=== PATIENT | female | born 1980 | race Caucasian/White ===

== ENCOUNTER 2020-04-05 21:27 | Inpatient (IN) ==
[2020-04-05] MEDS ORDERED: ACETAMINOPHEN 325 MG TABLET PO PRN (23:24)
[2020-04-05] MEDS ORDERED: ALBUTEROL 2.5 MG/3 ML NEB RESP TX PRN (23:24)
[2020-04-05] MEDS ORDERED: hydrALAZINE 20 MG/1 ML VIAL IV PRN (23:24)
[2020-04-05] MEDS ORDERED: ONDANSETRON 4 MG/2 ML VIAL IV PRN (23:24)
[2020-04-05] MEDS ORDERED: niCARdipine INJ 25 MG in SODIUM CHLORIDE 0.9% 240 ML IV PRN (23:59)
[2020-04-06] MEDS: SODIUM CHLORIDE 0.9% 1,000 ML IV SCH ×3 (00:17→17:41)
[2020-04-06 00:44] LABS: ABG HCO3 22.6 MMOL/L (20-26); ABG Oxygen Saturation 99.3 % (95-100); ABG PCO2 42.8 MM HG (35-48); ABG PH 7.341 (7.35-7.45); ABG PO2 340.8 MM HG (80-95); ABG TCO2 23.9 MMOL/L (23-27)
[2020-04-06] MEDS ORDERED: niCARdipine INJ 50 MG in SODIUM CHLORIDE 0.9% 480 ML IV PRN (00:57)
[2020-04-06] MEDS: ALBUTEROL 2.5 MG/3 ML NEB RESP TX SCH ×4 (01:50→20:14)
[2020-04-06 04:06] LABS: ABG Base Excess -1.8 MMOL/L (-2.5-2.5); ABG HCO3 22.9 MMOL/L (20-26); ABG Oxygen Saturation 98.9 % (95-100); ABG PCO2 38.5 MM HG (35-48); ABG PH 7.392 (7.35-7.45); ABG PO2 217.3 MM HG (80-95); ABG TCO2 24.1 MMOL/L (23-27)
[2020-04-06 04:24] LABS: Basophils % 0.3 % (0.0-0.8); Eosinophils # 0.1 10*3/uL (0.0-0.87); Eosinophils % 1.7 % (0.00-10.9); Hematocrit 34.9 VOL% (35.7-47.0); Hemoglobin 11.8 GM/DL (12.0-16.0); Immature Granulocytes % 0.3 %; Immature Granulocytes Absolute 0.02 #; Lymphocytes # 1.8 10*3/uL (1.4-4.0); Lymphocytes % 29.1 % (21.3-54.2); Mean Corpuscular HGB Conc 33.8 GM/DL (32-36); Mean Corpuscular Volume 81.9 FL (87-102); Mean Platelet Volume 9.4 FL (9.6-12.0); Monocytes % 5.7 % (1.7-12.7); Neutrophils % 62.9 % (38.7-73.9); Platelet Count 208 T/CUMM (130-400); Red Blood Count 4.26 MC/CUMM (3.8-5.5); Red Cell Distribution Width 12.9 % (9.3-17.3); White Blood Count 6.3 T/CUMM (4-12)
[2020-04-06 04:45] LABS: Calcium 8.3 MG/DL (8.5-10.1); Osmolality,Calculated 279.3 MOS/KG (273-304); Thyroid Stimulating Hormone 1.37 uIU/ml (0.358-3.74)
[2020-04-06] MEDS ORDERED: LORazepam 2 MG/1 ML VIAL IV ONE (08:17)
[2020-04-06] MEDS ORDERED: LORazepam 2 MG/1 ML VIAL ONE (08:21)
[2020-04-06] MEDS: ENOXAPARIN 40 MG/0.4 ML SYRINGE SUBCUT SCH (08:44)
[2020-04-06] MEDS: PANTOPRAZOLE 40 MG TABLET PO SCH (09:25)
[2020-04-07] MEDS: ALBUTEROL 2.5 MG/3 ML NEB RESP TX SCH ×3 (01:30→13:47)
[2020-04-07] MEDS: SODIUM CHLORIDE 0.9% 1,000 ML IV SCH ×2 (01:43→08:50)
[2020-04-07 05:44] LABS: Basophils % 0.5 % (0.0-0.8); Eosinophils # 0.1 10*3/uL (0.0-0.87); Eosinophils % 3.3 % (0.00-10.9); Hematocrit 30.4 VOL% (35.7-47.0); Hemoglobin 10.3 GM/DL (12.0-16.0); Immature Granulocytes % 0.3 %; Immature Granulocytes Absolute 0.01 #; Lymphocytes % 50.4 % (21.3-54.2); Mean Corpuscular HGB Conc 33.9 GM/DL (32-36); Mean Corpuscular Volume 85.2 FL (87-102); Mean Platelet Volume 9.6 FL (9.6-12.0); Neutrophils % 36.5 % (38.7-73.9); Platelet Count 175 T/CUMM (130-400); Red Blood Count 3.57 MC/CUMM (3.8-5.5); Red Cell Distribution Width 13.3 % (9.3-17.3); White Blood Count 3.9 T/CUMM (4-12)
[2020-04-07 05:59] LABS: Calcium 8.1 MG/DL (8.5-10.1); Osmolality,Calculated 280.1 MOS/KG (273-304)
[2020-04-07 06:01] LABS: Calcium 7.8 MG/DL (8.5-10.1)
[2020-04-07 06:15] LABS: Eosinophils 1 % (0-10); Lymphocytes 58 % (20-55); Segmented Neutrophils 34 % (50-85); Total Cells Counted 100
[2020-04-07 06:16] LABS: Platelet Estimate Normal
[2020-04-07] MEDS: ENOXAPARIN 40 MG/0.4 ML SYRINGE SUBCUT SCH (10:37)
[2020-04-07] MEDS: PANTOPRAZOLE 40 MG TABLET PO SCH (10:38)
[2020-04-07 13:28] VITALS: BP 137/92
== END 2020-04-07 14:58 | disposition home or self-care (01) | DRG 53 ==
LOC: N.ICU 22:50 → N.TELES 04-06 17:15
PROVIDERS: ADMIT Internal Medicine; ATTEND Internal Medicine